=== PATIENT | male | born 1960 | race African-American/Black ===

== ENCOUNTER 2020-08-23 13:31 | Observation (INO) ==
[2020-08-23 16:17] LABS: Basophils % 0.2 % (0.0-0.8); Eosinophils # 0.1 10*3/uL (0.0-0.87); Hematocrit 44.1 VOL% (42.0-52.0); Immature Granulocytes % 0.4 %; Immature Granulocytes Absolute 0.02 #; Lymphocytes # 1.7 10*3/uL (1.4-4.0); Lymphocytes % 34.6 % (21.2-54.2); Mean Corpuscular HGB Conc 31.7 GM/DL (32-36); Mean Corpuscular Volume 78.5 FL (87-102); Mean Platelet Volume 9.5 FL (9.6-12.0); Monocytes % 7.8 % (1.7-12.7); Platelet Count 287 T/CUMM (130-400); Red Blood Count 5.62 MC/CUMM (3.8-5.5); Red Cell Distribution Width 13.9 % (9.3-17.3)
[2020-08-23 16:32] LABS: Alanine Aminotransferase 24 U/L (16-61); Albumin 3.4 G/DL (3.4-5.0); Alkaline Phosphatase 61 U/L (45-117); Aspartate Amino Transferase 17 U/L (0-37); Bilirubin,Total < 0.39 MG/DL (0.20-1.00); Blood Urea Nitrogen 11 MG/DL (7-18); Calcium 8.9 MG/DL (8.5-10.1); Carbon Dioxide 24 MMOL/L (21-32); Estimated Glom Filtration Rate 142 ML/MIN; Glucose 201 MG/DL (74-106); Osmolality,Calculated 283.4 MOS/KG (273-304); Sodium 140 MMOL/L (136-145); Total Protein 7.3 G/DL (6.4-8.2)
[2020-08-23] MEDS ORDERED: ACETAMINOPHEN 325 MG TABLET PO PRN (18:17)
[2020-08-23] MEDS ORDERED: ONDANSETRON 4 MG/2 ML VIAL IV PRN (18:17)
[2020-08-23] MEDS ORDERED: GLUCAGON 1 MG VIAL IM PRN (18:17)
[2020-08-23] MEDS ORDERED: DEXTROSE 50% 25 GM/50 ML VIAL IV PRN ×2 (18:17)
[2020-08-23] MEDS ORDERED: ASPIRIN EC 325 MG TABLET PO STA (18:23)
[2020-08-23] MEDS ORDERED: ENOXAPARIN 40 MG/0.4 ML SYRINGE SUBCUT SCH (18:30)
[2020-08-24 06:45] LABS: Calcium 9.1 MG/DL (8.5-10.1); Osmolality,Calculated 282.4 MOS/KG (273-304); Potassium 3.8 MMOL/L (3.5-5.1); Risk Ratio 4.25; VLDL Cholesterol 22.6 MG/DL
[2020-08-24] MEDS ORDERED: ASPIRIN EC 325 MG TABLET PO SCH (09:00)
[2020-08-24] MEDS: INSULIN REGULAR 100 UNIT/ML SUBCUT SCH ×2 (10:11→16:29)
[2020-08-24] MEDS ORDERED: amLODIPine 5 MG TABLET PO ONE (14:29)
[2020-08-24] MEDS ORDERED: RIVAROXABAN 20 MG TABLET PO ONE (14:30)
[2020-08-24] MEDS: glipiZIDE 5 MG TABLET PO SCH (16:30)
[2020-08-24] MEDS ORDERED: ATORVASTATIN 20 MG TABLET PO SCH (21:00)
[2020-08-24] MEDS ORDERED: ATORVASTATIN 40 MG TABLET PO SCH (21:00)
[2020-08-25 06:16] LABS: Calcium 8.5 MG/DL (8.5-10.1); Osmolality,Calculated 277.7 MOS/KG (273-304); Potassium 3.7 MMOL/L (3.5-5.1)
[2020-08-25] MEDS: glipiZIDE 5 MG TABLET PO SCH (08:26)
[2020-08-25] MEDS ORDERED: ASPIRIN EC 81 MG TABLET PO SCH (09:00)
[2020-08-25] MEDS ORDERED: amLODIPine 5 MG TABLET PO SCH (09:00)
[2020-08-25] MEDS: INSULIN REGULAR 100 UNIT/ML SUBCUT SCH (10:32)
[2020-08-25 11:53] VITALS: BP 135/80
[2020-08-25] MEDS ORDERED: RIVAROXABAN 20 MG TABLET PO SCH (17:00)
[2020-08-25] MEDS ORDERED: RIVAROXABAN 10 MG TABLET PO SCH (17:00)
== END 2020-08-25 14:13 | disposition home or self-care (01) ==
LOC: N.EDINP 13:31 → N.ED 13:31 → SUATTDRO 18:14 → N.4E 20:20
PROVIDERS: ADMIT Internal Medicine; ATTEND Emergency Medicine